=== PATIENT | male | born 2000 | race Caucasian/White ===

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

== ENCOUNTER 2023-01-18 00:42 | Emergency (ER) | payer OTHER ==
[2023-01-18] MEDS ORDERED: LIDOCAINE/EPINEPHR/TETRACAINE 5 ML BOTTLE TOPICAL ONE (01:11)
[2023-01-18] MEDS ORDERED: LIDOCAINE 1% INJ 10MG/ML (20 ML MDV) SQ ONE (01:12)
--- NOTE | 2023-01-18 02:15 | ED ---
Wound/Laceration HPI - General Chief Complaint: Wound/Laceration Stated Complaint: Chin Laceration Time Seen by Provider: 01/18/23 00:52 Source: patient Mode of arrival: ambulatory Limitations: no limitations - History of Present Illness Initial Comments: 22-year-old male presenting with chief complaint of laceration to the chin. Patient fell while walking up the stairs. No loss of consciousness. No blood thinners. No neck pain, nausea, vomiting, dizziness, vision or hearing changes. 4 cm laceration of the chin. His tetanus is up-to-date. - Related Data Home Medications Medication Instructions Recorded Confirmed Acetaminophen [Tylenol] 500 mg PO Q8H 07/01/18 07/01/18 Calcium Carbonate [Tums] 500 mg PO Q2H 07/01/18 07/01/18 Ibuprofen [Motrin Ib] 400 mg PO Q8H 07/01/18 07/01/18 Multivitamin [Multivitamins Adult 1 each PO DAILY 07/01/18 07/01/18 Gummies] Previous Rx's Medication Instructions Recorded Amoxic-Pot Clav 875-125Mg 1 tab PO BID #14 tab 07/03/18 [Augmentin 875-125] Docusate [Colace] 100 mg PO BID #30 capsule 07/03/18 Hydrocodone/Acetaminophen [[place] 1 tab PO Q4HR PRN 3 Days #18 tab 07/03/18 5-325] Allergies Allergy/AdvReac Type Severity Reaction Status Date / Time No Known Allergies Allergy Verified 01/18/23 00:45 Review of Systems ROS Statement: Those systems with pertinent positive or pertinent negative responses have been documented in the HPI. ROS Other: All systems not noted in ROS Statement are negative. Past Medical History Past Medical History: No Reported History History of Any Multi-Drug Resistant Organisms: None Reported Past Surgical History: No Surgical Hx Reported Past Anesthesia/Blood Transfusion Reactions: No Reported Reaction Past Psychological History: No Psychological Hx Reported Smoking Status: Never smoker Past Alcohol Use History: Occasional Past Drug Use History: None Reported - Past Family History Mother Family Medical History: No Reported History General Exam Limitations: no limitations General appearance: alert, in no apparent distress Head exam: Present: normocephalic Expanded Head exam: Present: laceration (4 cm chin laceration) Eye exam: Present: normal appearance, PERRL, EOMI Neck exam: Present: normal inspection, full ROM Respiratory exam: Absent: respiratory distress Neurological exam: Present: alert, oriented X3 Psychiatric exam: Present: normal affect, normal mood Expanded Type of lesion: Present: laceration (4 cm to the chin) Course Vital Signs 01/18/23 01/18/23 00:43 02:29 Temperature 98 F 98.7 F Pulse Rate 85 76 Respiratory 18 16 Rate Blood Pressure 143/80 127/86 O2 Sat by Pulse 98 98 Oximetry Procedures - Laceration Laceration #1 Consent Obtained: verbal consent Indication: laceration Site: face Size (cm): 4 Description: linear Depth: simple, single layer Anesthetic Used: lidocaine 1%, without epi Anesthesia Technique: local infiltration Pre-repair: wound explored Type of Sutures: nylon Size of Sutures: 5-0 Number of Sutures: 6 Technique: simple, interrupted Patient Tolerated Procedure: well Medical Decision Making - Medical Decision Making Was pt. sent in by a medical professional or institution (, PA, FILLING AND STAPLING MACHINE OPERATOR, urgent care, hospital, or senior care...) When possible be specific @ -No Did you speak to anyone other than the patient for history (EMS, parent, family, police, friend...)? What history was obtained from this source @ -No Did you review nursing and triage notes (agree or disagree)? Why? @ -I reviewed and agree with nursing and triage notes Were old charts reviewed (outside hosp., previous admission, EMS record, old EK G, old radiological studies, urgent care reports/EKG's, senior care records)? Report findings @ -No old charts were reviewed Differential Diagnosis (chest pain, altered mental status, abdominal pain women, abdominal pain men, vaginal bleeding, weakness, fever, dyspnea, syncope, headache, dizziness, GI bleed, back pain, seizure, CVA, palpatations, mental health, musculoskeletal)? @ -not applicable EKG interpreted by me (3pts min.). @ -As above X-rays interpreted by me (1pt min.). @ -None done CT interpreted by me (1pt min.). @ -None done U/S interpreted by me (1pt. min.). @ -None done What testing was considered but not performed or refused? (CT, X-rays, U/S, labs)? Why? @ -None What meds were considered but not given or refused? Why? @ -None Did you discuss the management of the patient with other professionals (professionals i.e. Dr., PA, FILLING AND STAPLING MACHINE OPERATOR, lab, RT, psych nurse, dialysis social worker, tank crewmember, teacher, senior grants officer, casework supervisor)? Give summary @ -No Was smoking cessation discussed for >3mins.? @ -No Was critical care preformed (if so, how long)? @ -No Were there social determinants of health that impacted care today? How? (Homelessness, low income, unemployed, alcoholism, drug addiction, transportation, low edu. Level, literacy, decrease access to med. care, group home, rehab)? @ -No Was there de-escalation of care discussed even if they declined (Discuss DNR or withdrawal of care, Hospice)? DNR status @ -No What co-morbidities impacted this encounter? (DM, HTN, Smoking, COPD, CAD, Cancer, CVA, ARF, Chemo, Hep., AIDS, mental health diagnosis, sleep apnea, morbid obesity)? @ -None Was patient admitted / discharged? Hospital course, mention meds given and route, prescriptions, significant lab abnormalities, going to OR and other pertinent info. @ -22-year-old male presenting with chief complaint of laceration to the chin. The patient fell while going up the stairs. No loss of consciousness or blood thinners. Laceration is 4 cm long. Laceration is repaired, see procedure note for details. Educated on wound care and signs of infection. Follow-up with PCP. Report back to ER with any new or worsening symptoms. Discussed return parameters and answered all questions. Patient conveyed verbal understanding and agreed to the plan. I discussed this case in detail with my attending Dr. Gee Undiagnosed new problem with uncertain prognosis? @ -No Drug Therapy requiring intensive monitoring for toxicity (Heparin, Nitro, Insulin, Cardizem)? @ -No Were any procedures done? @ -Laceration repair Diagnosis/symptom? @ -Laceration Acute, or Chronic, or Acute on Chronic? @ -Acute Uncomplicated (without systemic symptoms) or Complicated (systemic symptoms)? @ -Uncomplicated Side effects of treatment? @ -No Exacerbation, Progression, or Severe Exacerbation? @ -No Poses a threat to life or bodily function? How? (Chest pain, [place], [place], pneumonia, PE, COPD, DKA, ARF, appy, cholecystitis, CVA, Diverticulitis, Homicidal, Suicidal, threat to staff... and all critical care pts) @ -No Disposition Clinical Impression: Laceration Disposition: HOME SELF-CARE Condition: Good Instructions (If sedation given, give patient instructions): Care For Your Stitches (ED), Facial Laceration (ED) Additional Instructions: Follow-up with PCP. Report back to ER with any new or worsening symptoms. Keep the wound clean and dry. You may wash daily with soap and water. Monitor for signs of infection, including but not limited to redness, swelling, warmth, tenderness, discharge. Sutures may be removed in 5 days. Is patient prescribed a controlled substance at d/c from ED?: No Referrals: Isai Vanegas DO [Primary Care Provider] - 1-2 days Time of Disposition: 02:15
[2023-01-18 02:31] VITALS: BP 127/86; PULSE 76; RESP 16; TEMP 98.7
== END 2023-01-18 02:30 | disposition home or self-care (01) ==
LOC: EC 00:42
DX: S01.81XA Laceration without foreign body of other part of head, initial encounter (principal); W10.9XXA Fall (on) (from) unspecified stairs and steps, initial encounter; Y93.01 Activity, walking, marching and hiking
CPT/HCPCS: 12013; 99282; J2001

== ENCOUNTER 2024-10-19 17:02 | Emergency (ER) | payer OTHER ==
[2024-10-19 17:06] VITALS: TEMP 98.9
--- NOTE | 2024-10-19 17:18 | ED ---
Male Urogenital HPI - General Chief complaint: Urogenital Stated complaint: urogenital Time Seen by Provider: 10/19/24 17:12 Source: patient, RN notes reviewed Mode of arrival: ambulatory Limitations: no limitations - History of Present Illness Initial comments: This is a 24-year-old male presenting for left testicular abnormal appearance x 1 hour. Patient states he was in the shower when he felt his left teste was "sideways", causing him concern enough to come to ER for further evaluation. States his left teste is normally sideways and is concerned that he has a [place] deformity. Patient denies associated pain, swelling, urethral discharge, dysuria, hematuria. MD Complaint: other (Testicle sideways) Onset/Timin -: days(s) Location: left testicle Radiation: none Severity scale (1-10): 0 Reports: denies other symptoms - Related Data Home Medications Medication Instructions Recorded Confirmed Acetaminophen [Tylenol] 500 mg PO Q8H 07/01/18 07/01/18 Calcium Carbonate [Tums] 500 mg PO Q2H 07/01/18 07/01/18 Ibuprofen [Motrin Ib] 400 mg PO Q8H 07/01/18 07/01/18 Multivitamin [Multivitamins Adult 1 each PO DAILY 07/01/18 07/01/18 Gummies] Previous Rx's Medication Instructions Recorded Amoxic-Pot Clav 875-125Mg 1 tab PO BID #14 tab 07/03/18 [Augmentin 875-125] Docusate [Colace] 100 mg PO BID #30 capsule 07/03/18 Hydrocodone/Acetaminophen [[place] 1 tab PO Q4HR PRN 3 Days #18 tab 07/03/18 5-325] Allergies Allergy/AdvReac Type Severity Reaction Status Date / Time No Known Allergies Allergy Verified 10/19/24 17:06 Review of Systems ROS Statement: Those systems with pertinent positive or pertinent negative responses have been documented in the HPI. ROS Other: All systems not noted in ROS Statement are negative. Past Medical History Past Medical History: No Reported History History of Any Multi-Drug Resistant Organisms: None Reported Past Surgical History: Appendectomy Past Anesthesia/Blood Transfusion Reactions: No Reported Reaction Past Psychological History: No Psychological Hx Reported Smoking Status: Never smoker Past Alcohol Use History: Occasional Past Drug Use History: None Reported - Past Family History Mother Family Medical History: No Reported History General Exam Limitations: no limitations General appearance: alert, in no apparent distress Head exam: Present: atraumatic, normocephalic, normal inspection Eye exam: Present: normal appearance, PERRL, EOMI. Absent: scleral icterus, conjunctival injection, periorbital swelling ENT exam: Present: normal exam, mucous membranes moist Neck exam: Present: normal inspection. Absent: tenderness, meningismus, lymphadenopathy Respiratory exam: Present: normal lung sounds bilaterally. Absent: respiratory distress, wheezes, rales, rhonchi, stridor Cardiovascular Exam: Present: regular rate, normal rhythm, normal heart sounds. Absent: systolic murmur, diastolic murmur, rubs, gallop, clicks GI/Abdominal exam: Present: soft, normal bowel sounds. Absent: distended, tenderness, guarding, rebound, rigid exam: Present: normal inspection, circumcision, other (Negative bilateral testicular tenderness, edema, scrotal erythema. Cremasteric reflex intact bilaterally). Absent: testicular tenderness, urethral discharge, scrotal swelling, vertical testicular lie Extremities exam: Present: normal inspection, full ROM, normal capillary refill. Absent: tenderness, pedal edema, joint swelling, calf tenderness Back exam: Present: normal inspection Neurological exam: Present: alert, oriented X3, CN II-XII intact Psychiatric exam: Present: normal affect, normal mood Skin exam: Present: warm, dry, intact, normal color. Absent: rash Course Vital Signs 10/19/24 10/19/24 17:03 18:32 Temperature 98.9 F Pulse Rate 114 H 115 H Respiratory 18 20 Rate Blood Pressure 155/88 141/81 O2 Sat by Pulse 99 99 Oximetry Medical Decision Making - Medical Decision Making Was pt. sent in by a medical professional or institution (, PA, RESOURCE ROOM TEACHER, urgent care, hospital, or group home...) When possible be specific @ -[No] Did you speak to anyone other than the patient for history (EMS, parent, family, police, friend...)? What history was obtained from this source @ -[No] Did you review nursing and triage notes (agree or disagree)? Why? @ -[I reviewed and agree with nursing and triage notes] Were old charts reviewed (outside hosp., previous admission, EMS record, old EKG, old radiological studies, urgent care reports/EKG's, group home records)? Report findings @ -[No old charts were reviewed] Differential Diagnosis (chest pain, altered mental status, abdominal pain women, abdominal pain men, vaginal bleeding, weakness, fever, dyspnea, syncope, headache, dizziness, GI bleed, back pain, seizure, CVA, palpatations, mental health, musculoskeletal)? @ -Differential Abdominal Pain Men: Appendicitis, cholecystitis, diverticulosis, ischemic bowel, pancreatitis, hepatitis, UTI, gastroenteritis, AAA, incarcerated hernia, bowel obstruction, constipation, inflammatory bowel, hepatitis, peptic ulcer disease, splenic infarction, perforated viscus, testicular torsion, this is not meant to be an all-inclusive list EKG interpreted by me (3pts min.). @ -Not done X-rays interpreted by me (1pt min.). @ -[None done] CT interpreted by me (1pt min.). @ -[None done] U/S interpreted by me (1pt. min.). @ -[None done] What testing was considered but not performed or refused? (CT, X-rays, U/S, labs)? Why? @ -[None] What meds were considered but not given or refused? Why? @ -[None] Did you discuss the management of the patient with other professionals (professionals i.e. , PA, RESOURCE ROOM TEACHER, lab, RT, psych nurse, psychologist social, seed cleaning machine operator, teacher, public affairs officer, case hardener)? Give summary @ -[No] Was smoking cessation discussed for >3mins.? @ -[No] Was critical care preformed (if so, how long)? @ -[No] Were there social determinants of health that impacted care today? How? (Homelessness, low income, unemployed, alcoholism, drug addiction, transportation, low edu. Level, literacy, decrease access to med. care, retirement, rehab)? @ -[No] Was there de-escalation of care discussed even if they declined (Discuss DNR or withdrawal of care, Hospice)? DNR status @ -[No] What co-morbidities impacted this encounter? (DM, HTN, Smoking, COPD, CAD, Cancer, CVA, ARF, Chemo, Hep., AIDS, mental health diagnosis, sleep apnea, morbid obesity)? @ -[None] Was patient admitted / discharged? Hospital course, mention meds given and route, prescriptions, significant lab abnormalities, going to OR and other pertinent info. @ -[hospital course] Undiagnosed new problem with uncertain prognosis? @ -[No] Drug Therapy requiring intensive monitoring for toxicity (Heparin, Nitro, Insulin, Cardizem)? @ -[No] Were any procedures done? @ -[No] Diagnosis/symptom? @ -[default] Acute, or Chronic, or Acute on Chronic? @ -Acute Uncomplicated (without systemic symptoms) or Complicated (systemic symptoms)? @ -Uncomplicated Side effects of treatment? @ -[No] Exacerbation, Progression, or Severe Exacerbation? @ -[No] Poses a threat to life or bodily function? How? (Chest pain, [place], [place], pneumonia, PE, COPD, DKA, ARF, appy, cholecystitis, CVA, Diverticulitis, Homicidal, Suicidal, threat to staff... and all critical care pts) @ -[No] - Lab Data Lab Results 10/19/24 Range/Units 17:27 Urine Color Yellow Urine Appearance Clear (Clear) Urine pH 6.0 (5.0-8.0) Ur Specific [place] 1.035 (1.001-1.035) Urine Protein Trace H (Negative) Urine Glucose (UA) Negative (Negative) Urine Ketones Trace H (Negative) Urine Blood Negative (Negative) Urine Nitrite Negative (Negative) Urine Bilirubin Negative (Negative) Urine Urobilinogen 4.0 (<2.0) mg/dL Ur Leukocyte Esterase Negative (Negative) Disposition Clinical Impression: Testicular abnormality Disposition: HOME SELF-CARE Condition: Good Instructions (If sedation given, give patient instructions): Testicular Self- examination (ED), Testicular Torsion (ED) Additional Instructions: Return to ER if experiencing testicular pain, swelling, urethral discharge or pain with urination Is patient prescribed a controlled substance at d/c from ED?: No Referrals: None,Stated [Primary Care Provider] - 1-2 days Orion Fenton MD [STAFF PHYSICIAN] - 1-2 days Time of Disposition: 18:40
[2024-10-19 17:32] LABS: Bilirubin,Urine Negative (Negative); Blood,Urine Negative (Negative); Color,Urine Yellow; Glucose,Urine (UA) Negative (Negative); Ketones,Urine Trace (Negative); Leukocyte Esterase,Urine Negative (Negative); Nitrite,Urine Negative (Negative); PH, Urine 6.0 (5.0-8.0); Protein,Urine Trace (Negative); Specific Gravity,Urine 1.035 (1.001-1.035); Urobilinogen,Urine 4.0 mg/dL (<2.0)
--- NOTE | 2024-10-19 18:27 | US ---
EXAMINATION TYPE: US scrotum with doppler. DATE OF EXAM: 10/19/2024 COMPARISON: NONE CLINICAL INDICATION: Male, 24 years old with history of Left teste swelling; Patient states he notice d left teste located off to side- but has since returned to normal. No pain. No injury. No discolor ation. TECHNIQUE: Grayscale, color Doppler and spectral Doppler imaging of the scrotum. FINDINGS: EXAM MEASUREMENTS: TESTICLES: Right Testicle: 4.6 x 3.3 x 2.6 cm Left Testicle: 4.5 x 3.2 x 2.8 cm EPIDIDYMIS HEAD: Right Epididymis: 0.8 x 1.0 x 0.8 cm Left Epididymis: 1.1 x 0.8 x 0.9 cm - Epididymal head cyst- 2.8 mm Doppler performed to assess for testicular vascularity; good bilateral color flow and spectral wavefo david are seen. There is no evidence of testicular torsion. Presence of hydroceles: no Presence of varicoceles: no IMPRESSION: No sonographic evidence for acute process. No evidence for intratesticular mass. [facility], , 10/19/2024 6:24 PM
[2024-10-19 18:33] VITALS: BP 141/81; PULSE 115; RESP 20
[2024-10-21 13:08] LABS: C. trachomatis,PCR Negative (Negative)
[2024-10-21 13:18] LABS: N. gonorrhoeae,PCR Negative (Negative)
== END 2024-10-19 18:56 | disposition home or self-care (01) ==
LOC: EC 17:02
DX: Q55.20 Unspecified congenital malformations of testis and scrotum (principal)
CPT/HCPCS: 76870; 81003; 87491; 87591; 93975; 99284